=== PATIENT | male | born 1970 | race Caucasian/White ===

== ENCOUNTER 2017-08-23 13:46 | Emergency (ER) | payer OTHER ==
[2017-08-23 14:37] VITALS: BP 96/64
--- NOTE | 2017-08-23 14:48 | UC ---
Skin Complaint HPI - HPI Summary HPI Summary: Patient states that he cut some sumac last . Yesterday noted a rash to his left forearm, his left ankle and right wrist. He notes the rash to be very itchy. He denies any trouble breathing, fever and offers no other complaints. He's attempted no self treatment. - History of Current Complaint [facility] Se[facility] by Provider: 08/23/17 14:41 Stated Complaint: SKIN COMPLAINT Hx Obtained From: Patient Onset/Duration: Gradual Onset Timing: Constant Pain Intensity: 0 Aggravating Factor(s): Nothing Alleviating Factor(s): Nothing Associated Signs & Symptoms: Positive: Rash - ITCHY - Allergy/Home Medications Allergies/Adverse Reactions: Allergies Allergy/AdvReac Type Severity Reaction Status Date / Time sodium fluoride Allergy Unknown GI Upset Verified 08/23/17 14:34 [From Thera-Flur] Review of Systems Constitutional: Negative Skin: Rash Eyes: Negative ENT: Negative Respiratory: Negative Cardiovascular: Negative Gastrointestinal: Negative Genitourinary: Negative Motor: Negative Neurovascular: Negative Musculoskeletal: Negative Neurological: Negative Psychological: Negative Is Patient Immunocompromised?: No All Other Systems Reviewed And Are Negative: Yes PMH/Surg Hx/FS Hx/Imm Hx Previously Healthy: Yes - Surgical History Surgical History: Yes Surgery Procedure, Year, and Place: left eye surgery as a child - Family History Known Family History: Positive: Cardiac Disease - Social History Occupation: Employed Full-time Lives: With Family Alcohol Use: Occasionally Substance Use Type: None Smoking Status (MU): Light Every Day Tobacco Smoker Type: Cigarettes Amount Used/How Often: LESS THAN 1/2 PPD Have You Smoked in the Last Year: Yes Household Exposure Type: Cigarettes - Immunization History Vaccination Up to Date: Yes Physical Exam Triage Information Reviewed: Yes Appearance: Well-Appearing Vital Signs: Initial Vital Signs Temp 98.3 F 08/23/17 14:29 Pulse 65 08/23/17 14:29 Resp 15 08/23/17 14:29 BP 96/64 08/23/17 14:29 Pulse Ox 96 08/23/17 14:29 Vital Signs Reviewed: Yes Eyes: Positive: Conjunctiva Clear ENT: Positive: Normal ENT inspection Neck: Positive: Supple, Nontender, No Lymphadenopathy Respiratory: Positive: Lungs clear, Normal breath sounds Cardiovascular: Positive: RRR, No Murmur Abdomen Description: Positive: Nontender, No Organomegaly, Soft Bowel Sounds: Positive: Present Musculoskeletal: Positive: ROM Intact Neurological: Positive: Alert Psychological: Positive: Age Appropriate Behavior Skin Exam: Normal Skin: Positive: rashes - Left upper extremity exam: The distal volar forearm has patch of mild erythema that is slightly raised and just proximal to that is a second area that is more linear in nature. They're not petechial or scaly. Left lower extremity exam: Medial ankle has a similar patch. Right upper extremity exam: Volar wrist has the same. Course/Dx - Course Course Of Treatment: C/W CONTACT DERMATITIS - Diagnoses Provider Diagnoses: Contact Dermatitis Discharge - Sign-Out/Discharge Documenting (check all that apply): Patient Departure - Discharge Plan Condition: Stable Disposition: HOME Prescriptions: methylPREDNISolone [Medrol Dosepak 4 MG*] 0 mg PO .SEE MILIND INSTRUCTION #1 tab Patient Education Materials: Contact Dermatitis (ED) Referrals: Marley Pelletier PA [Primary Care Provider] - 7 Days Additional Instructions: TAKE BENADRYL PER LABEL NEEDED FOR ITCHING. Per institutional requirements, I have reviewed the chart, however, I was not consulted specifically or made aware of this patient by the above midlevel provider. I did not personally evaluate, interact with , or disposition this patient. - Billing Disposition and Condition Condition: STABLE Disposition: Home
== END 2017-08-23 14:56 | disposition home or self-care (01) ==
LOC: UCCORT 13:46
DX: L25.5 Unspecified contact dermatitis due to plants, except food (principal); F17.210 Nicotine dependence, cigarettes, uncomplicated
CPT/HCPCS: 99212; G0463

== ENCOUNTER 2018-10-14 16:23 | Emergency (ER) | payer SELFPAY ==
[2018-10-14 16:44] VITALS: BP 113/71
--- NOTE | 2018-10-14 16:52 | UC ---
Shoulder Pain HPI - HPI Summary HPI Summary: Pt presents with c/o right shoulder pain that began after he walked into a door casing at work while "walking at fast pace" and hitting right shoulder against wooden door casing on 10/13/18. - History of Current Complaint Chief Complaint: UCUpperExtremity Stated Complaint: W/C RIGHT SHOULDER INJURY Time Seen by Provider: 10/14/18 16:39 Hx Obtained From: Patient Onset/Duration: Sudden Onset, Lasting Hours, Still Present Timing: Constant Severity Initially: Mild Severity Currently: Moderate Location Of Pain: Is Discrete @ - right anterior shoulder/proximal humerus Pain Intensity: 7 Character: Dull, Aching, Stiffness Aggravating Factor(s): Movement Alleviating Factor(s): Rest Associated Signs And Symptoms: Positive: Negative Related History: Dominant Hand Right - Risk Factors Non-Orthopedic Risk Factor: Negative DVT Risk Factors: Negative Septic Arthritis Risk Factor: Negative - Allergies/Home Medications Allergies/Adverse Reactions: Allergies Allergy/AdvReac Type Severity Reaction Status Date / Time sodium fluoride Allergy Unknown GI Upset Verified 10/14/18 16:44 [From Thera-Flur] Home Medications: Home Medications NK [No Home Medications Reported] 10/14/18 [History Confirmed 10/14/18] PMH/Surg Hx/FS Hx/Imm Hx Previously Healthy: Yes - Surgical History Surgical History: Yes Surgery Procedure, Year, and Place: left eye surgery as a child - Family History Known Family History: Positive: Cardiac Disease - Social History Occupation: Employed Full-time Lives: With Family Alcohol Use: Occasionally Substance Use Type: None Smoking Status (MU): Light Every Day Tobacco Smoker Type: Cigarettes Amount Used/How Often: 1/2 ppd Have You Smoked in the Last Year: Yes Household Exposure Type: Cigarettes - Immunization History Vaccination Up to Date: Yes Review of Systems All Other Systems Reviewed And Are Negative: Yes Constitutional: Positive: Negative Skin: Positive: Negative Eyes: Positive: Negative ENT: Positive: Negative Respiratory: Positive: Negative Cardiovascular: Positive: Negative Gastrointestinal: Positive: Negative Genitourinary: Positive: Negative Motor: Positive: Decreased ROM - right shoulder Neurovascular: Positive: Negative Musculoskeletal: Positive: Arthralgia, Decreased ROM, Myalgia Neurological: Positive: Negative Psychological: Positive: Negative Is Patient Immunocompromised?: No Physical Exam Triage Information Reviewed: Yes Appearance: Well-Appearing, Pain Distress - with right arm movement Vital Signs: Initial Vital Signs Temp 97.9 F 10/14/18 16:41 Pulse 78 10/14/18 16:41 Resp 16 10/14/18 16:41 BP 113/71 10/14/18 16:41 Pulse Ox 99 10/14/18 16:41 Vital Signs Reviewed: Yes Eye Exam: Normal ENT: Positive: Hearing grossly normal Dental Exam: Normal Neck exam: Normal Respiratory: Positive: No respiratory distress Musculoskeletal: Positive: ROM Limited @ - right shoulder Neurological Exam: Normal Psychological Exam: Normal Skin Exam: Normal Diagnostics - Radiology No standard instances Radiology Interpretation Completed By: Radiologist - Rippler: Balbir Miller C ([id number]) 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 Decreased range of motion. Comparison: No relevant prior exams available on the [facility] PACS for comparison. Technique: Internal rotation AP, external rotation Grashey, scapular Y, axillary views RIGHT shoulder REPORT AND IMPRESSION: #. Negative for fracture. #. Normal acromioclavicular and glenohumeral joint alignment. #. Moderate acromioclavicular osteoarthritis and moderate inferior acromial bone spur. Mild glenohumeral joint osteoarthritis. # . Calcific tendinopathy at the subscapularis and infraspinatus tendons. The large burden of calcific tendinopathy at the subscapularis tendon may account for the anterior pain. #. Unremarkable soft tissue contours. <Electronically signed by Balbir Miller MD in [place]> 10/14/181735 Dictated By: Balbir Miller MD Dictated Date/ Time: 10/14/181725 Transcribed Date/Time: 10/14/181725 Copy to: CC:Marley SELLERS; Chuy Gamez MD; Yasemin Pollack NP Imaging - [facility] Imaging - [facility] [address] [address] ph [phone]) ph ([phone]) ph ([phone]) End of Report Content Shoulder Course/Dx - Differential Dx/Diagnosis Differential Diagnosis/HQI/PQRI: Rotator Cuff Injury, Sprain, Strain, Tendonitis Provider Diagnosis: Shoulder pain, right Discharge ED - Sign-Out/Discharge Documenting (check all that apply): Patient Departure All imaging exams completed and their final reports reviewed: Yes - Discharge Plan Condition: Stable Disposition: HOME Patient Education Materials: Tendinitis (ED), Safe Use of NSAIDs (ED), Shoulder Pain (ED) Referrals: Marley Pelletier PA [Primary Care Provider] - Raul Colón MD [Medical Doctor] - If Needed - Billing Disposition and Condition Condition: STABLE Disposition: Home
== END 2018-10-14 17:50 | disposition home or self-care (01) ==
LOC: UCCORT 16:23
DX: W22.09XA Striking against other stationary object, initial encounter (principal); Y93.01 Activity, walking, marching and hiking; Y92.89 Other specified places as the place of occurrence of the external cause; Y99.0 Civilian activity done for income or pay; F17.210 Nicotine dependence, cigarettes, uncomplicated
CPT/HCPCS: 99211; G0463